=== PATIENT | male | born 1980 | race Caucasian/White ===

== ENCOUNTER 2024-11-08 23:31 | Emergency (ER) | payer OTHER ==
[2024-11-09] MEDS ORDERED: diphenhydrAMINE 50 MG/ML VIAL ONE (00:38)
[2024-11-09] MEDS ORDERED: Famotidine/PF 20 mg/2ml Vial ONE (00:39)
== END 2024-11-09 01:50 | disposition home or self-care (01) ==
LOC: ERS 23:31
DX: R21 Rash and other nonspecific skin eruption (principal); R06.02 Shortness of breath; T39.395A Adverse effect of other nonsteroidal anti-inflammatory drugs [NSAID], initial encounter
CPT/HCPCS: 96374; 96375; J1200; J1308; J2919